=== PATIENT | female | born 1945 | race Hispanic/Latino ===

== ENCOUNTER 2023-12-29 21:55 | Emergency (ER) | payer MEDICARE, MEDICAID ==
[~2023-12-29] VITALS: Ht 152.4 cm; Wt 58.9 kg
[2023-12-29] MEDS ORDERED: KETOROLAC TROMETHAMINE 15 MG/ML VIAL IV ONE (22:15)
[2023-12-29 22:21] LABS: RDW 13.6 (10.5-15.0)
[2023-12-29 22:28] LABS: EOSINOPHILS 2.8 % (0-6)
[2023-12-29 22:30] LABS: BASOPHILS 1.4 % (0-2); HEMATOCRIT 39.1 % (35.0-50.0); LYMPHOCYTES 25.3 % (24-44); MCH 30.9 (27-36); MCHC 33.3 g/dl (30-36); MONOCYTES 11.1 % (0-12); NEUTROPHILS 59.4 % (39-80); PLATELET COUNT 194 K/uL (140-440); RBC 4.21 M/ul (4.3-5.7)
[2023-12-29 22:51] LABS: ALBUMIN 3.6 g/dL (3.4-5.0); ALBUMIN/GLOBULIN RATIO 0.84 (1.1-2.4); ANION GAP 13.5 (7-21); BILIRUBIN, TOTAL 0.3 ng/dL (0.2-1.0); BUN/CREATININE RATIO 26.25 (6.0-28.6); CALCIUM 9.8 mg/dL (8.5-10.1); CREATININE, SERUM 0.8 mg/dL (0.55-1.02); MAGNESIUM 2.1 mg/dL (1.8-2.4); POTASSIUM 4.5 mmol/L (3.5-5.1); PROTEIN, TOTAL 7.9 g/dL (6.4-8.2); TSH, 3RD GENERATION 1.599 uIU/mL (0.358-3.740)
[2023-12-29 23:31] LABS: BILIRUBIN, URINE NEGATIVE (negative); BLOOD/HGB, URINE SMALL (Negative); KETONE, URINE NEGATIVE (Negative); LEUK ESTERASE, URINE NEGATIVE (negative); NITRITE, URINE NEGATIVE (negative); PH, URINE 6.5 (5-7)
[2023-12-29 23:42] LABS: CRYSTALS, URINE NONE SEEN (0-1+); EPITHELIAL CELLS, URINE NONE SEEN /lpf (0-1+)
[2023-12-29 23:43] LABS: BACTERIA, URINE RARE /hpf (negative); CASTS, URINE NONE SEEN \\lpf; COLLECTION TYPE, URINE CLEAN CATCH; REFLEX CULTURE, URINE No (No)
[2023-12-30] MEDS ORDERED: NAPROSYN500 MG PO ×2 (00:15→00:25)
[2023-12-30 00:38] VITALS: BP 159/79
--- NOTE | 2023-12-30 21:32 | EKG ---
[facility] [address] [place] [address] Signed Normal sinus rhythm Normal ECG No previous ECGs available Confirmed by Alberto Dow MD () on 12/30/2023 9:32:28 PM Electronically Signed By: ALBERTO DOW MD 12/30/232131 PATIENT NAME: ANANT MCKEONKASSANDRA Electrocardiogram DATE OF : 43 PHYSICIAN: ALBERTO DOW MD REPORT #: [id number] REPORT IS CONFIDENTIAL AND NOT TO BE RELEASED WITHOUT AUTHORIZATION
== END 2023-12-30 00:38 | disposition home or self-care (01) ==
LOC: ED 21:55
PROVIDERS: Internal Medicine
DX: M94.0 Chondrocostal junction syndrome [Tietze] (principal)
CPT/HCPCS: 36415; 71045; 71260; 80053; 81001; 83735; 83880; 84443; 84484; 85025; 85379; 93005; 93010; 99284-25; J1885; Q9967

== ENCOUNTER 2024-05-22 19:07 | Emergency (ER) | payer MEDICARE, MEDICAID ==
[~2024-05-22] VITALS: Ht 149.9 cm; Wt 56.7 kg
[~2024-05-22 19:07] MED LIST: NAPROSYN500 MG PO
[2024-05-22 20:20] LABS: BASOPHILS 1.2 % (0-2); EOSINOPHILS 3.3 % (0-6); HEMATOCRIT 37.3 % (35.0-50.0); HEMOGLOBIN 12.3 g/dL (12.0-18.0); LYMPHOCYTES 34.5 % (24-44); MCH 30.7 (27-36); MCHC 33.1 g/dl (30-36); MCV 92.7 fl (81-99); PLATELET COUNT 181 K/uL (140-440); RBC 4.02 M/ul (4.3-5.7); RDW 13.7 (10.5-15.0)
[2024-05-22 20:38] LABS: ALBUMIN 3.3 g/dL (3.4-5.0); ALBUMIN/GLOBULIN RATIO 0.8 (1.1-2.4); ANION GAP 10.9 (7-21); BILIRUBIN, TOTAL 0.4 ng/dL (0.2-1.0); BUN/CREATININE RATIO 16.39 (6.0-28.6); CALCIUM 9.7 mg/dL (8.5-10.1); CREATININE, SERUM 1.22 mg/dL (0.55-1.02); POTASSIUM 3.9 mmol/L (3.5-5.1); PROTEIN, TOTAL 7.4 g/dL (6.4-8.2)
[2024-05-22 20:44] LABS: BILIRUBIN, URINE NEGATIVE (negative); BLOOD/HGB, URINE SMALL (Negative); KETONE, URINE NEGATIVE (Negative); LEUK ESTERASE, URINE NEGATIVE (negative); NITRITE, URINE NEGATIVE (negative)
[2024-05-22] MEDS ORDERED: KETOROLAC TROMETHAMINE 15 MG/ML VIAL IV ONE (20:45)
[2024-05-22 20:55] LABS: BACTERIA, URINE NONE SEEN /hpf (negative); CASTS, URINE NONE SEEN \\lpf; CRYSTALS, URINE NONE SEEN (0-1+); EPITHELIAL CELLS, URINE SQUAMOUS 1+ /lpf (0-1+); WHITE BLOOD CELLS, URINE 0-1 /HPF (0-5)
[2024-05-22 20:56] LABS: COLLECTION TYPE, URINE CLEAN CATCH; REFLEX CULTURE, URINE No (No)
[2024-05-22 21:14] LABS: CORONAVIRUS COVID-19 AG NEGATIVE (NEGATIVE); INFLUENZA A AG NEGATIVE (NEGATIVE); INFLUENZA B AG NEGATIVE (NEGATIVE)
[2024-05-22] MEDS ORDERED: LACTATED RINGER'S 1,000 ML IV ONE (21:30)
[2024-05-22 22:21] VITALS: BP 168/64
== END 2024-05-22 22:20 | disposition home or self-care (01) ==
LOC: ED 19:07
PROVIDERS: Internal Medicine
DX: S16.1XXA Strain of muscle, fascia and tendon at neck level, initial encounter (principal); E86.0 Dehydration; I10 Essential (primary) hypertension; Z87.01 Personal history of pneumonia (recurrent); X58.XXXA Exposure to other specified factors, initial encounter
CPT/HCPCS: 36415; 71046; 80053; 81001; 83880; 84484; 85025; 85379; 96361; 96374; 99283-25; J1885; J7121